=== PATIENT | female | born 2005 | race Caucasian/White ===

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

== ENCOUNTER 2024-08-31 14:36 | Outpatient (OUT) | payer OTHER, SELFPAY ==
[2024-09-02 05:07] LABS: QuantiFERON-TB Gold Plus Negative (Negative)
== END 2024-08-31 14:37 | disposition home or self-care (01) ==
LOC: LAB 14:38
PROVIDERS: PCP Family Medicine; Visit Provider Family Medicine
DX: Z01.84 Encounter for antibody response examination (principal)
CPT/HCPCS: 36415; 86317; 86480